=== PATIENT | male | born 1980 | race Asian ===

== ENCOUNTER 2017-07-14 23:49 | Emergency (ER) | payer OTHER ==
[~2017-07-14] VITALS: Ht 160 cm; Wt 77.1 kg
[2017-07-15 00:05] VITALS: BP 117/85
[2017-07-15] MEDS ORDERED: IBUPROFEN 600 MG TAB PO ONE (02:30)
[2017-07-15 02:33] LABS: Basophils # (auto) 0.1 uL; Basophils % (auto) 1.1 % (0.0-2.0); Eosinophils # (auto) 0.2 uL; Eosinophils % (auto) 1.7 % (0.0-7.0); Hematocrit 42.4 % (41.0-53.0); Hemoglobin 14.3 g/dL (13.5-17.5); Lymphocytes # (auto) 1.6 uL; Lymphocytes % (auto) 16.2 % (10.0-50.0); Mean Corpuscular Hemoglobin 29.1 pg (28.0-32.0); Mean Corpuscular Hgb Conc. 33.8 g/dL (32.0-36.0); Monocytes # (auto) 0.9 uL; Monocytes % (auto) 9.4 % (0.0-12.0); Neutrophils % (auto) 71.6 % (37.0-80.0); Platelet Count (auto) 426 10^3/uL (140-450); Red Blood Cells 4.92 10^6/uL (4.5-5.90); Red Cell Distribution Width 14.1 % (11.8-14.3); White Blood Cell 9.9 10^3/uL (4.4-10.8)
[2017-07-15 02:52] LABS: Albumin 3.7 g/dL (3.4-5.0); BUN/Creatinine Ratio 19.6; Bilirubin, Total 0.2 mg/dL (0.2-1.0); Calcium 8.6 mg/dL (8.5-10.1); Potassium 4.2 mmol/L (3.5-5.1); Total Protein 8.7 g/dL (6.4-8.2); Uric Acid 11.2 mg/dL (3.5-7.2)
[2017-07-15] MEDS ORDERED: ACETAMINOPHEN 500 MG TAB PO ONE (05:00)
== END 2017-07-15 04:30 | disposition home or self-care (01) ==
LOC: ER 23:49
DX: M10.9 Gout, unspecified (principal); N28.9 Disorder of kidney and ureter, unspecified
CPT/HCPCS: 36415; 80053; 84550; 85025

== ENCOUNTER 2024-06-24 21:26 | Emergency (ER) | payer OTHER ==
[~2024-06-24] VITALS: Ht 160 cm; Wt 75.0 kg
[2024-06-24 22:22] VITALS: BP 143/105; PULSE 108; RESP 20; O2SAT 96
[2024-06-24] MEDS ORDERED: cefTRIAXone 2GM/50ML D5W 50 ML IV ONE (23:30)
[2024-06-24] MEDS ORDERED: MORPHINE SULFATE INJ 2 MG/ml SYRG IV ONE (23:30)
--- NOTE | 2024-06-24 23:42 | ED.PDOC ---
Musculoskeletal HPI Comments 43-year-old male came to ER due to left foot pain. Patient has history of diabetes and gout, though that for the past week he has been having swelling and pain of the left foot, noted swelling of the 3rd digit of the left foot. Denies any recent trauma. Denies any fever. Chief Complaint: Lower Extremity Time Seen by MD: 23:41 Primary Care Provider: NONE Reviewed Notes: Nurses Notes Allergies: Coded Allergies: No Known Drug Allergy (Unverified Allergy, Unknown, 12/03/14) Information Source: Patient Mode of Arrival: Ambulatory Location: Left Extremity Location: Foot, Toe 3 Timing: Days Prehospital treatment: None Severity: Moderate Able to Move Extremity: Yes Bear Weight: Limited Pain: Moderate Hand Dominance: Right Mechanism: Spontaneous Circumstances: Spontaneous Onset of Symptoms: Spontaneous Symptoms: Swelling, Pain Associated signs and symptoms: Foot pain (left) Review of Systems REVIEW OF SYSTEMS: No fever, no chills, or fatigue HEENT: No sore throat, no earache, no congestion, no neck pain. Cardiac: No chest pain. No palpitations. Lungs: No shortness of breath, no cough. GI: No nausea, no vomiting, no diarrhea, no constipation, no abdominal pain : No dysuria, frequency, or urgency. No hematuria. Musculoskeletal: No joint pain , no joint swelling, (+) left foot pain and swelling Skin: No rash, no itching. Neuro: No headache, no dizziness, no weakness Vital Signs Vital Signs Date Time Temp Pulse Resp B/P (MAP) Pulse Ox O2 Delivery O2 Flow Rate FiO2 06/24/24 22:22 99.7 108 20 143/105 (118) 96 Physical Exam General: Awake, alert and oriented. No acute distress. Skin: Skin in warm, dry and intact. Appropriate color for ethnicity. Nailbeds pink with no cyanosis. HEENT: The head is normocephalic and atraumatic. Conjunctivae are clear without exudates or hemorrhage. Sclera is non-icteric. EOM are intact. No signs of nystagmus. Eyelids are normal in appearance without swelling or lesions. Oral mucosa is pink and moist Neck: The neck is supple with normal range of motion. No JVD. Cardiac: Heart rate and rhythm are normal. No murmurs, gallops, or rubs are auscultated. Respiratory: No signs of respiratory distress. Lung sounds are clear in all lobes bilaterally without rales, ronchi, or wheezes. Abdominal: Abdomen is soft, non-tender without distention. Bowel sounds are present and normoactive in all four quadrants. Extremities: Edema of left ankle, swelling, erythema, warmth and deformity of left middle toe with purulent discharge Neurological: The patient is awake, alert and oriented to person, place, and time with normal speech. Speech is clear. There is no facial asymmetry. Psychiatric: Appropriate mood and affect. Good judgement and insight. No visual or auditory hallucinations. Past Medical History PAST MEDICAL HISTORY: DM, Gout Surgical History: Denies all surgeries Family History Family History: Reviewed,noncontributory to illness Social History Smoker: Non-Smoker Alcohol: Denies ETOH Use Drugs: Denies Drug Use Lives In: Home Was a procedure done? Was a procedure done?: No Differential Diagnosis EXT Differential Diagnosis: Cellulitis, Gout, Septic, Other (Diabetic foot) X-Ray, Labs, Meds, VS Vital Signs Date Time Temp Pulse Resp B/P (MAP) Pulse Ox O2 Delivery O2 Flow Rate FiO2 06/24/24 22:22 99.7 108 20 143/105 (118) 96 Lab Test 06/25/24 01:23 06/24/24 23:30 Range/Units Lactic Acid Level Pending 2.1 *H 0.4-2.0 mmol/L White Blood Count 19.1 H 4.4-10.8 10^3/uL Red Blood Count 4.44 L 4.5-5.90 10^6/uL Hemoglobin 12.3 L 13.5-17.5 g/dL Hematocrit 38.0 L 41.0-53.0 % Mean Corpuscular Volume 85.5 80.0-100.0 fL Mean Corpuscular Hemoglobin 27.8 L 28.0-32.0 pg Mean Corpuscular Hemoglobin Concent 32.5 32.0-36.0 g/dL Red Cell Distribution Width 15.8 H 11.8-14.3 % Platelet Count 480 H 140-450 10^3/uL Mean Platelet Volume 6.5 L 6.9-10.8 fL Neutrophils (%) (Auto) 83.1 H 37.0-80.0 % Lymphocytes (%) (Auto) 5.6 L 10.0-50.0 % Monocytes (%) (Auto) 9.4 0.0-12.0 % Eosinophils (%) (Auto) 1.1 0.0-7.0 % Basophils (%) (Auto) 0.8 0.0-2.0 % Neutrophils # (Auto) 15.9 H 1.6-8.6 10 ^3/uL Lymphocytes # (Auto) 1.1 0.4-5.4 10 ^3/uL Monocytes # (Auto) 1.8 H 0-1.3 10 ^3/uL Eosinophils # (Auto) 0.2 0-0.8 10 ^3/uL Basophils # (Auto) 0.2 0-0.2 10 ^3/uL Nucleated Red Blood Cells 0.0 % Sodium Level 140 136-145 mmol/L Potassium Level 4.3 3.5-5.1 mmol/L Chloride Level 108 H 98-107 mmol/L Carbon Dioxide Level 23 20-31 mmol/L Anion Gap 9 5-15 Blood Urea Nitrogen 30 H 9-23 mg/dL Creatinine 1.42 H 0.700-1.30 mg/dL Glomerular Filtration Rate Calc 62 >90 mL/min BUN/Creatinine Ratio 21.1 H 10.0-20.0 Serum Glucose 101 74-106 mg/dL Calcium Level 10.0 8.7-10.4 mg/dL Time of 1ST Reevaluation: 23:38 Reevaluation 1ST: Unchanged Patient Education/Counseling: Diagnosis, Treatment, Other (Need for admission) Family Education/Counseling: No Family Present Departure 1 Departure Time of Disposition: 01:04 Impression: Primary Impression: Cellulitis Additional Impression: Osteomyelitis Disposition: 09 ADMITTED INPATIENT Condition: Stable Comments 43-year-old male who presents with left middle toe swelling and pain. CT scan is suspicious for osteomyelitis. There appears to be cellulitis of the left middle toe as well. Antibiotics and IV fluids initiated in the emergency department. Patient admitted for further treatment, evaluation and monitoring. Extensive evaluation was performed in attempt to identify or rule out: (See differential diagnosis section) The following tests were ordered, and results were reviewed by me: (See diagnostic results section) The following test were independently interpreted by me: N/A I reviewed and agreed with the following test results read by other providers: N/A I reviewed the following notes from the pt's past medical encounters: (None available at this time) Additional information was gathered from interviewing the following independent historians: N/A Discussion of management or test interpretation with external physician/other qualified health physician assistant primary care: N/A Addressed an acute or chronic illness that poses a threat to life or bodily function: Acute cellulitis, osteomyelitis Decision regarding hospitalization or escalation of hospital level of care: Risk and benefits of admission for further treatment of patient's condition was considered. Due to patient's current clinical condition, high risk of decline and poor outcome if discharged and need for further inpatient management and monitoring, patient will be admitted to the hospital. Drug therapy requiring intensive monitoring for toxicity: N/A Parenteral controlled substances: Morphine IV Decision regarding elective major surgery with identified patient or procedure risk factors: N/A Decision regarding emergency major surgery: N/A Decision not to resuscitate or to de-escalate care because of poor prognosis: N/ A Diagnosis or treatment significantly limited by social determinants of health: N/A Critical Care Note Critical Care Time?: No Stability Stability form required: No I personally scribed for RD ZSYMANSKI MD ([email or web address]) on 06/24/24 at 23:42. Electronically submitted by Zacarias Serrano ([facility]). RD SZYMANSKI MD Jun 24, 2024 23:42
[2024-06-24 23:47] LABS: Hemoglobin 12.3 g/dL (13.5-17.5)
[2024-06-24 23:49] LABS: Basophils # (auto) 0.2 10 ^3/uL (0-0.2); Basophils % (auto) 0.8 % (0.0-2.0); Eosinophils # (auto) 0.2 10 ^3/uL (0-0.8); Eosinophils % (auto) 1.1 % (0.0-7.0); Lymphocytes # (auto) 1.1 10 ^3/uL (0.4-5.4); Lymphocytes % (auto) 5.6 % (10.0-50.0); Mean Corpuscular Hemoglobin 27.8 pg (28.0-32.0); Mean Corpuscular Hgb Conc. 32.5 g/dL (32.0-36.0); Mean Corpuscular Volume 85.5 fL (80.0-100.0); Monocytes # (auto) 1.8 10 ^3/uL (0-1.3); Monocytes % (auto) 9.4 % (0.0-12.0); Neutrophils # (auto) 15.9 10 ^3/uL (1.6-8.6); Neutrophils % (auto) 83.1 % (37.0-80.0); Platelet Count (auto) 480 10^3/uL (140-450); Red Blood Cells 4.44 10^6/uL (4.5-5.90); Red Cell Distribution Width 15.8 % (11.8-14.3); White Blood Cell 19.1 10^3/uL (4.4-10.8)
[2024-06-24 23:59] LABS: Potassium 4.3 mmol/L (3.5-5.1); Sodium 140 mmol/L (136-145)
[2024-06-25] LABS: Anion Gap 9 (5-15); Carbon Dioxide 23 mmol/L (20-31)
[2024-06-25 00:03] LABS: Chloride 108 mmol/L (98-107)
[2024-06-25 00:05] LABS: BUN/Creatinine Ratio 21.1 (10.0-20.0); Glucose 101 mg/dL (74-106)
[2024-06-25 00:11] LABS: Blood Urea Nitrogen 30 mg/dL (9-23)
[2024-06-25 00:12] LABS: Lactic Acid w/Reflex 2.1 mmol/L (0.4-2.0)
--- NOTE | 2024-06-25 00:19 | DVH ---
EXAMINATION: CT CT left FOOT WO CONTRAST INDICATION: Left middle toe swelling, discharge COMPARISON: None TECHNIQUE: CT of the left foot was performed without contrast. Volume transverse images were obtained reconstructed in multiple planes using bone and soft tissue algorithms. CONTRAST: None FINDINGS: The alignment is normal. No acute fracture or dislocation Soft tissue swelling is seen throughout the 3rd toe. Vague cortical irregularity in the proximal and middled phalanx of the 3rd digit may reflect acute osteomyelitis IMPRESSION: 1. Vague cortical irregularity in the proximal and middle phalanx of the 3rd digit 1 may reflect acut e osteomyelitis. Recommend MRI foot for further evaluation
[2024-06-25] MEDS ORDERED: CEFEPIME 2GM/50ML NS 50 ML IV ONE (01:15)
[2024-06-25] MEDS ORDERED: VANCOMYCIN PER PHARMACY 0 MG IV SCH (01:15)
[2024-06-25] MEDS ORDERED: VANCOMYCIN 1GM/250ML KIT 250 ML IV ONE (01:30)
[2024-06-25] MEDS ORDERED: SODIUM CHLORIDE 0.9% 1,000 ML IV ONE (02:00)
[2024-06-25] MEDS ORDERED: VANCOMYCIN 1GM/250ML KIT 187.5 ML IV ONE (03:30)
== END 2024-06-24 21:41 | disposition left against medical advice (07) ==
LOC: ER 21:26
DX: L03.032 Cellulitis of left toe (principal); E11.69 Type 2 diabetes mellitus with other specified complication; M86.9 Osteomyelitis, unspecified; M10.9 Gout, unspecified
CPT/HCPCS: 36415; 73700; 80048; 83605; 85025; 87040